=== PATIENT | female | born 1990 | race Hispanic/Latino ===

== ENCOUNTER 2018-10-14 21:38 | Emergency (ER) | payer OTHER ==
[2018-10-14 22:33] VITALS: PULSE 77; RESP 18; O2SAT 100
--- NOTE | 2018-10-15 01:19 | ED PDOC ---
HPI: Head Injury Time Seen by Provider: 10/14/18 22:39 Chief Complaint (Nursing): Trauma Chief Complaint (Provider): head injury History Per: Family () Injury Occurred (Timing): Just Before Arrival Onset/Duration Of Symptoms: Sudden Onset Patient States: Fell Striking Head Additional Complaint(s): 28 year old female with pmHx of tremor and depression, is brought to ED by for an evaluation of a head injury that occurred prior to arrival. reports they have been drinking at a bar, left, then patient fell striking the right side of head on the ground, in which, she sustained a large bump. Patient is intoxicated but denies LOC or pain to affected area. PCP: none provided Past Medical History Reviewed: Historical Data, Nursing Documentation, Vital Signs Vital Signs: Last Vital Signs Temp 98.3 F 10/14/18 22:30 Pulse 77 10/14/18 22:30 Resp 18 10/14/18 22:30 BP 111/75 10/14/18 22:30 Pulse Ox 100 10/14/18 22:30 - Medical History PMH: No Chronic Diseases - Surgical History Surgical History: No Surg Hx - Family History Family History: States: Unknown Family Hx - Social History Alcohol: Occasional - Immunization History Hx Tetanus Toxoid Vaccination: Yes Hx Influenza Vaccination: No Hx Pneumococcal Vaccination: No - Allergies Allergies/Adverse Reactions: Allergies Allergy/AdvReac Type Severity Reaction Status Date / Time amoxicillin [From Augmentin] Allergy RASH Verified 10/14/18 22:30 clavulanic acid Allergy RASH Verified 10/14/18 22:30 [From Augmentin] Review of Systems ROS Statement: Except As Marked, All Systems Reviewed And Found Negative Neurological: Positive for: Other (right-sided hematoma). Negative for: Headache (or LOC) Physical Exam - Reviewed Nursing Documentation Reviewed: Yes Vital Signs Reviewed: Yes - Physical Exam Appears: Positive for: No Acute Distress Head Exam: Negative for: ATRAUMATIC Skin: Positive for: Normal Color Eye Exam: Positive for: Normal appearance ENT: Positive for: Normal ENT Inspection Neck: Positive for: Normal Cardiovascular/Chest: Positive for: Regular Rate, Rhythm Respiratory: Positive for: Normal Breath Sounds. Negative for: Respiratory Distress Gastrointestinal/Abdominal: Positive for: Normal Exam, Soft. Negative for: Tenderness Extremity: Positive for: Normal ROM (upper/lower). Negative for: Deformity (upper/lower) Neurologic/Psych: Positive for: Alert, director product management II-XII (grossly intact), Gait (unsteady), Other (large, 8x4cm right-sided forehead hematoma; slurred speech). Negative for: Motor/Sensory Deficits, Aphasia - Laboratory Results Urine POC: Negative - ECG O2 Sat by Pulse Oximetry: 100 (RA) Pulse Ox Interpretation: Normal Medical Decision Making Medical Decision Making: Initial Impression: 28 year old female with head injury in setting of alcohol intoxication. Initial Plan: * CT head * Urine * Accucheck Time: 2300 --Accucheck: 95 mg/dL. Time: 104 --CT head Findings: Normal size of the ventricles and extra-axial spaces for the patient's age. Normal white matter tracts of the supratentorial brain. Normal basal ganglia and thalami. Normal brainstem. Normal cerebellum. There is no demonstrated extra-axial, intraparenchymal, or intraventricular hemorrhage. There are no findings of an acute ischemic infarction. Normal calvarium. There is no demonstrated fracture. Right frontal subgaleal soft tissue hematoma. Normal visualized paranasal sinuses. IMPRESSION: Normal unenhanced CT scan of the brain. Right frontal subgaleal soft tissue hematoma. Time: 117 --Upon provider reevaluation, patient is medically stable and is discharged home in the care of her . Counseling was provided and all questions were answered regarding diagnosis. There is agreement to discharge plan. Return if symptoms persist or worsen. Clinical Impression: Head injury Scribe Attestation: Documented by Karis Robbins, acting as a scribe for Jeferson Atkinson MD. Provider Scribe Attestation: All medical record entries made by the Scribe were at my direction and personally dictated by me. I have reviewed the chart and agree that the record accurately reflects my personal performance of the history, physical exam, medical decision making, and the department course for this patient. I have also personally directed, reviewed, and agree with the discharge instructions and disposition. Disposition - Clinical Impression Clinical Impression: Head injury, Traumatic hematoma of forehead - Patient ED Disposition Is Patient to be Admitted: No Counseled Patient/Family Regarding: Studies Performed, Diagnosis, Need For Followup - Disposition Disposition: Routine/Home Disposition Time: 01:18 Condition: STABLE Instructions: Closed Head Injury Forms: [employer] (E[place]ian)
[2018-10-15 02:33] VITALS: BP 128/75; TEMP 98
--- NOTE | 2018-10-15 13:27 | CT ---
Date of service: 10/14/2018 PROCEDURE: CT HEAD WITHOUT CONTRAST. HISTORY: head injury COMPARISON: None available. TECHNIQUE: Axial computed tomography images were obtained through the head/brain without intravenous contrast. Radiation dose: Total exam DLP = 640.2 mGy-cm. This CT exam was performed using one or more of the following dose reduction techniques: Automated exposure control, adjustment of the mA and/or kV according to patient size, and/or use of iterative reconstruction technique. FINDINGS: HEMORRHAGE: No acute parenchymal, subarachnoid or extra-axial hemorrhage. BRAIN: No evidence of large acute infarct. No obvious parenchymal nor extra-axial masses or collections seen on this noncontrast study. Moderate to fairly significant generalized volume loss particularly for this patient's age group. VENTRICLES: The no obstructive hydrocephalus. CALVARIUM: Unremarkable. PARANASAL SINUSES: Unremarkable as visualized. No significant inflammatory changes. MASTOID AIR CELLS: Unremarkable as visualized. No inflammatory changes. OTHER FINDINGS: None. IMPRESSION: No acute intracranial hemorrhage. Moderate to fairly significant generalized volume loss particularly for this patient's age group. The Moderate size right sided frontal temporal scalp contusion.
== END 2018-10-15 01:25 | disposition home or self-care (01) ==
LOC: H.ER 21:38
DX: S00.03XA Contusion of scalp, initial encounter (principal); S09.90XA Unspecified injury of head, initial encounter; Z86.59 Personal history of other mental and behavioral disorders